=== PATIENT | female | born 1990 | race Caucasian/White ===

== ENCOUNTER 2016-10-22 13:06 | Emergency (ER) | payer OTHER ==
[2016-10-22] MEDS ORDERED: Ibuprofen TAB* 400 MG PO ONE (14:28)
[2016-10-22 15:22] LABS: Hematocrit 40 % (35-47); Mean Corpuscular HGB Conc 33 g/dl (31-36); Mean Corpuscular Hemoglobin 30 pg (27-31); Mean Corpuscular Volume 92 fL (80-97); Mean Platelet Volume 9 um3 (7.4-10.4); Red Blood Count 4.33 10^6/ul (4.0-5.4); Red Cell Distribution Width 13 % (10.5-15); White Blood Count 17.8 10^3/ul (3.5-10.8)
[2016-10-22 15:37] LABS: Mono Internal Control QC Line Present
--- NOTE | 2016-10-22 15:40 | ED ---
Influenza-Like Illness - HPI Summary HPI Summary: Patient presents with throat pain, chest congestion and runny nose for approximately two weeks. She has a history of tonsillar swelling whenever she gets sick, so she has been using her nails to "squeeze them, to get any fluid out". She feels like she has gotten fluid out, but now her lymph nodes are swelling and she feels like she has fluid in her ears. She denies measured fever , but she has "felt warm". She asks if we can take her tonsils out. She saw an ENT when she was younger. She denies hearing loss, BONILLA or chest congestion. - History of Current Complaint Chief Complaint: EDThroatPain Time Seen by Provider: 10/22/16 13:47 Hx Obtained From: Patient Onset/Duration: Gradual Onset Severity: Severe Associated Signs & Symptoms: Sore Throat, Nasal Congestion - Allergy/Home Medications Allergies/Adverse Reactions: Allergies Allergy/AdvReac Type Severity Reaction Status Date / Time No Known Allergies Allergy Verified 07/14/15 12:12 PMH/Surg Hx/FS Hx/Imm Hx Cardiovascular History: Denies: Hx Congestive Heart Failure Respiratory History: Reports: Hx Asthma - A CHILD Psychiatric History: Reports: Hx Eating Disorder, Hx Bipolar Disorder - Surgical History Surgery Procedure, Year, and Place: essure- tubal ligation procedure, hx of ruptured bladder, hx of pelvic fx Hx Anesthesia Reactions: No Infectious Disease History: No Infectious Disease History: Reports: Hx Clostridium Difficile - not active Denies: Hx Hepatitis, Hx Human Immunodeficiency Virus (HIV), Hx of Known/ Suspected MRSA, Hx Shingles, Hx Tuberculosis, History Other Infectious Disease, Traveled Outside the [place] in Last 30 Days - Family History Known Family History: Positive: Other - cancer Negative: Cardiac Disease, Hypertension, Diabetes - Social History Occupation: Employed Part-time Lives: With Family Alcohol Use: None Substance Use Type: Reports: None Smoking Status (MU): Never Smoked Tobacco Amount Used/How Often: quit 2011 Have You Smoked in the Last Year: No Review of Systems Negative: Fever, Chills Positive: Sore Throat, Ear Ache, Nasal Discharge Negative: Chest Pain Negative: Cough Negative: Vomiting, Diarrhea, Nausea Negative: Myalgia Negative: Bruising Negative: Headache All Other Systems Reviewed And Are Negative: Yes Physical Exam Triage Information Reviewed: Yes Vital Signs On Initial Exam: Initial Vitals Temp Pulse Resp BP Pulse Ox 98.4 F 73 18 112/72 98 10/22/16 13:08 10/22/16 13:08 10/22/16 13:08 10/22/16 13:08 10/22/16 13:08 Vital Signs Reviewed: Yes Appearance: Positive: Well-Appearing, Well-Nourished, Pain Distress Skin: Positive: Warm, Skin Color Reflects Adequate Perfusion, Dry, Soft Head/Face: Positive: Normal Head/Face Inspection Eyes: Positive: EOMI, CSAE, Conjunctiva Clear ENT: Positive: Hearing grossly normal, Nasal congestion, TMs normal - clear fluid note bilateral ear drums, Tonsillar exudate Dental: Negative: Percussion Tenderness @ Neck: Positive: Supple, No Lymphadenopathy, Tenderness @ - bilateral cervical chain Respiratory/Lung Sounds: Positive: Clear to Auscultation, Breath Sounds Present Cardiovascular: Positive: RRR Abdomen Description: Positive: Nontender, Soft Bowel Sounds: Positive: Present Musculoskeletal: Positive: Strength/ROM Intact. Negative: Edema Left, Edema Right Neurological: Positive: Sensory/Motor Intact, Alert, Oriented to Person Place, Time, NV Bundle Intact Distally, Normal Gait Psychiatric: Positive: Affect/Mood Appropriate AVPU Assessment: Alert Diagnostics - Vital Signs Vital Signs Temp Pulse Resp BP Pulse Ox 10/22/16 13:08 98.4 F 73 18 112/72 98 - Laboratory Lab Results: Lab Results 10/22/16 10/22/16 Range/Units 14:50 14:50 WBC 17.8 H (3.5-10.8) 10^3/ul RBC 4.33 (4.0-5.4) 10^6/ul Hgb 13.0 (12.0-16.0) g/dl Hct 40 (35-47) % MCV 92 (80-97) fL MCH 30 (27-31) pg MCHC 33 (31-36) g/dl RDW 13 (10.5-15) % Plt Count 230 (150-450) 10^3/ul MPV 9 (7.4-10.4) um3 Neut % (Auto) 87.0 H (38-83) % Lymph % (Auto) 7.3 L (25-47) % Menard % (Auto) 2.7 (1-9) % Eos % (Auto) 2.2 (0-6) % Baso % (Auto) 0.8 (0-2) % Absolute Neuts (auto) 15.5 H (1.5-7.7) 10^3/ul Absolute Lymphs (auto) 1.3 (1.0-4.8) 10^3/ul Absolute Monos (auto) 0.5 (0-0.8) 10^3/ul Absolute Eos (auto) 0.4 (0-0.6) 10^3/ul Absolute Basos (auto) 0.1 (0-0.2) 10^3/ul Absolute Nucleated RBC 0 10^3/ul Nucleated RBC % 0 Monoscreen Pending Group A Strep Rapid Negative (Negative) Result Diagrams: 10/22/16 14:50 Lab Statement: Any lab studies that have been ordered have been reviewed, and results considered in the medical decision making process. Flu Symptom Course/Dx - Diagnoses Differential Diagnosis/HQI/PQRI: Positive: Bronchitis, Influenza, Pneumonia, RSV , Upper Respiratory Infection Provider Diagnoses: Tonsillitis with exudate Discharge - Discharge Plan Condition: Stable Disposition: HOME Prescriptions: Amoxicillin CAP* 500 mg PO Q12H #19 cap Patient Education Materials: Tonsillitis (ED) Referrals: Bhavana Lu MD [Primary Care Provider] - Terry Gutierres MD [Medical Doctor] - Additional Instructions: Please take the antibiotic until it is completely gone. Use ibuprofen 600-800mg three times daily with meals for the next 3-5 days to decrease swelling and pain. Perform warm saltwater gargles several times daily. Call Dr. Gutierres's office for an appointment to discus your concerns regarding your tonsils. Return to the emergency department if your symptoms worsen.
[2016-10-22] MEDS ORDERED: Amoxicillin PO (*) 250 MG CAP PO ONE (15:46)
[2016-10-22 16:09] VITALS: BP 105/62
== END 2016-10-22 16:08 | disposition home or self-care (01) ==
LOC: ED 13:06
DX: J02.9 Acute pharyngitis, unspecified (principal); H92.09 Otalgia, unspecified ear; J03.90 Acute tonsillitis, unspecified
CPT/HCPCS: 36415; 85025; 86308; 87651; 99283; A9270-GY

== ENCOUNTER 2017-01-20 08:44 | Emergency (ER) | payer SELFPAY ==
[2017-01-20 09:35] VITALS: BP 101/60
[2017-01-20] MEDS ORDERED: Ibuprofen TAB* 600 MG PO ONE (09:49)
--- NOTE | 2017-01-20 10:16 | UC ---
Respiratory Complaint HPI - HPI Summary HPI Summary: 1) About 2 weeks ago started having productive cough with tight chest, painful breathing. Denies marked nasal congestion, ST, or sneezing. Sx improved for a couple days, now are worse again. Pt has asthma, ran out of inhaler and is using brother's. Does not have any more albuterol neb respules. 2) L hip pain for several weeks. Hx of hip fx, gets pain occasionally. No new injury, no change in pain, worse with standing, walking, and lifting leg. Has responded well to prednisone in the past. Missed last apt with PCP, has discussed skilled nursing NSAIDs before. - History of Current Complaint Chief Complaint: UCGeneralIllness Stated Complaint: CONGESTION HIP PAIN Time Seen by Provider: 01/20/17 10:02 Hx Obtained From: Patient Hx Last Menstrual Period: 01/08/17 ?: No Onset/Duration: Gradual Onset, Lasting Weeks Timing: Constant Severity Initially: Mild Severity Currently: Moderate Character: Cough: Productive Aggravating Factors: Deep Breaths, Recumbent Position Alleviating Factors: OTC Meds, Upright Position Associated Signs And Symptoms: Positive: Hemoptysis, URI. Negative: Fever, Chills, Calf Pain, Sinus Discomfort - Allergies/Home Medications Allergies/Adverse Reactions: Allergies Allergy/AdvReac Type Severity Reaction Status Date / Time No Known Allergies Allergy Verified 07/14/15 12:12 PMH/Surg Hx/FS Hx/Imm Hx Cardiovascular History Of: Denies: Congestive Heart Failure Respiratory History Of: Reports: Asthma Psychological History Of: Reports: Bipolar Disorder - Surgical History Surgical History: Yes Surgery Procedure, Year, and Place: essure- tubal ligation procedure, hx of ruptured bladder, hx of pelvic fx. BACK SURGERY - Family History Known Family History: Positive: Other - cancer Negative: Cardiac Disease, Hypertension, Diabetes - Social History Lives: With Family Alcohol Use: Occasionally Substance Use Type: None Smoking Status (MU): Never Smoked Tobacco Amount Used/How Often: quit 2010 Have You Smoked in the Last Year: No Household Exposure Type: Cigarettes - Immunization History Most Recent Influenza Vaccination: 2011 Most Recent Tetanus Shot: years ago Most Recent Pneumonia Vaccination: none Vaccination Up to Date: Yes Review of Systems Constitutional: Negative Skin: Negative Eyes: Negative ENT: Negative Respiratory: Shortness Of Breath, Cough Cardiovascular: Negative Gastrointestinal: Negative Genitourinary: Negative Motor: Negative Neurovascular: Negative Musculoskeletal: Other: - L hip pain Neurological: Negative Psychological: Negative All Other Systems Reviewed And Are Negative: Yes Physical Exam Triage Information Reviewed: Yes Appearance: Well-Appearing, No Pain Distress, Well-Nourished Vital Signs: Initial Vital Signs Temp 98.9 F 01/20/17 09:20 Pulse 52 01/20/17 09:20 Resp 16 01/20/17 09:20 BP 101/60 01/20/17 09:20 Pulse Ox 98 01/20/17 09:20 Vital Signs Reviewed: Yes Eye Exam: Normal Eyes: Positive: Conjunctiva Clear ENT Exam: Normal ENT: Positive: Normal ENT inspection, Hearing grossly normal, Pharynx normal, TMs normal. Negative: Nasal drainage, Tonsillar swelling, Tonsillar exudate Dental Exam: Normal Neck exam: Normal Neck: Positive: Supple, Nontender Respiratory: Positive: No respiratory distress, Wheezing, Expiration - prolonged expt phase Cardiovascular Exam: Normal Cardiovascular: Positive: RRR, No Murmur Musculoskeletal Exam: Normal Neurological Exam: Normal Neurological: Positive: Alert Psychological Exam: Normal Skin Exam: Normal UC Diagnostic Evaluation - Laboratory O2 Sat by Pulse Oximetry: 98 Respiratory Course/Dx - Differential Dx/Diagnosis Provider Diagnoses: asthma exacerbation. L hip pain Discharge - Discharge Plan Condition: Stable Disposition: HOME Prescriptions: Albuterol 2.5MG/3ML (0.083%)* [Ventolin 2.5 MG/3 ML NEB.PRISCILLA*] 2.5 mg INH Q6H PRN #20 neb.priscilla PRN Reason: wheeze Albuterol HFA INHALER* [Ventolin HFA Inhaler*] 1 - 2 puff INH Q4H PRN #1 mdi PRN Reason: wheeze, cough predniSONE TAB* [Deltasone TAB*] 10 mg PO DAILY #45 tab Patient Education Materials: Asthma (ED), Hip Pain (ED) Referrals: Bhavana Lu MD [Primary Care Provider] - 1 Week Additional Instructions: Call or return if you develop increasing fever, shortness of breath, chest pain , bloody sputum, or otherwise worsen. If you have not improved at all after several days, contact your primary care physician or return here.
== END 2017-01-20 10:20 | disposition home or self-care (01) ==
LOC: UCEAST 08:44
DX: J45.901 Unspecified asthma with (acute) exacerbation (principal); M25.552 Pain in left hip; F31.9 Bipolar disorder, unspecified
CPT/HCPCS: 99212; A9270-GY; G0463

== ENCOUNTER → 2017-02-20 12:49 | Emergency (ER) | payer MEDICAID ==
[2017-02-20 12:54] VITALS: BP 106/61
--- NOTE | 2017-02-20 14:06 | RAD ---
INDICATION: Right hand injury. TECHNIQUE: 4 views of the right hand were obtained. FINDINGS: The bones are in normal alignment. No fracture is seen. Joint spaces appear maintained. IMPRESSION: NO EVIDENCE FOR FRACTURE.
--- NOTE | 2017-03-05 11:12 | ED ---
Upper Extremity Pain - HPI Summary HPI Summary: Patient struck her hand against a metal door two days ago and has continued pain and decreased motion due to pain. She did not punch the door. She denies previous injury to this hand and does not have N/T. - History of Current Complaint Chief Complaint: EDExtremityUpper Stated Complaint: RT HAND PAIN Time Seen by Provider: 02/20/17 13:07 Hx Obtained From: Patient Hx Last Menstrual Period: 01/08/17 Mechanism Of Injury: Blunt Trauma Onset/Duration: Started Days Ago - 2, Traumatic, Still Present Timing: Constant Severity Initially: Moderate Severity Currently: Mild Pain Location: Hand Character: Sharp, Aching Aggravating Factor(s): Movement Alleviating Factor(s): Nothing Associated Signs & Symptoms: Positive: Negative Related History: Dominant Hand Right - Allergies/Home Medications Allergies/Adverse Reactions: Allergies Allergy/AdvReac Type Severity Reaction Status Date / Time No Known Allergies Allergy Verified 02/20/17 12:50 PMH/Surg Hx/FS Hx/Imm Hx Cardiovascular History: Denies: Hx Congestive Heart Failure Respiratory History: Reports: Hx Asthma Psychiatric History: Reports: Hx Eating Disorder, Hx Bipolar Disorder - Surgical History Surgery Procedure, Year, and Place: essure- tubal ligation procedure, hx of ruptured bladder, hx of pelvic fx. BACK SURGERY Hx Anesthesia Reactions: No Infectious Disease History: Yes Infectious Disease History: Reports: Hx Clostridium Difficile - not active Denies: Hx Hepatitis, Hx Human Immunodeficiency Virus (HIV), Hx of Known/ Suspected MRSA, Hx Shingles, Hx Tuberculosis, History Other Infectious Disease, Traveled Outside the [place] in Last 30 Days - Family History Known Family History: Positive: Other - cancer Negative: Cardiac Disease, Hypertension, Diabetes - Social History Occupation: Employed Part-time Lives: With Family Alcohol Use: Occasionally Substance Use Type: Reports: None Smoking Status (MU): Never Smoked Tobacco Amount Used/How Often: quit 2011 Have You Smoked in the Last Year: No Review of Systems Positive: Myalgia, Decreased ROM. Negative: Edema Negative: Bruising Negative: Paresthesia, Numbness All Other Systems Reviewed And Are Negative: Yes Physical Exam Triage Information Reviewed: Yes Vital Signs On Initial Exam: Initial Vitals Temp Pulse Resp BP Pulse Ox 98.9 F 63 18 106/61 100 02/20/17 12:52 02/20/17 12:52 02/20/17 12:52 02/20/17 12:52 02/20/17 12:52 Vital Signs Reviewed: Yes Appearance: Positive: Well-Appearing, Well-Nourished, Pain Distress Skin: Positive: Warm, Skin Color Reflects Adequate Perfusion, Dry, Soft Head/Face: Positive: Normal Head/Face Inspection Eyes: Positive: EOMI, CASE, Conjunctiva Clear ENT: Positive: Hearing grossly normal Respiratory/Lung Sounds: Positive: Breath Sounds Present Cardiovascular: Positive: RRR Musculoskeletal: Positive: Strength/ROM Intact - able to form a full fist despite pain, Pain @ - globally TTP. Negative: Edema Right Neurological: Positive: Sensory/Motor Intact, Alert, Oriented to Person Place, Time, NV Bundle Intact Distally Psychiatric: Positive: Affect/Mood Appropriate AVPU Assessment: Alert Diagnostics - Vital Signs Vital Signs Temp Pulse Resp BP Pulse Ox 02/20/17 12:52 98.9 F 63 18 106/61 100 - Laboratory Lab Statement: Any lab studies that have been ordered have been reviewed, and results considered in the medical decision making process. - Radiology No standard instances Xray Interpretation: No Acute Changes Radiology Interpretation Completed By: Radiologist Course/Dx - Diagnoses Differential Diagnosis/HQI/PQRI: Positive: Arthritis, Bursitis, Contusion, Fracture (Closed), Hematoma, Strain, Sprain Provider Diagnoses: Contusion of right hand Discharge - Discharge Plan Condition: Stable Disposition: HOME Patient Education Materials: Contusion in Adults (ED) Referrals: Bhavana Lu MD [Primary Care Provider] - Additional Instructions: Please follow-up with your primary care if symptoms to not begin to improve in the next 7-10 days.
== END | disposition home or self-care (01) ==
LOC: ED 12:49
DX: S60.221A Contusion of right hand, initial encounter (principal); W22.8XXA Striking against or struck by other objects, initial encounter; Y92.9 Unspecified place or not applicable; F31.9 Bipolar disorder, unspecified; Z87.891 Personal history of nicotine dependence
CPT/HCPCS: 99281

== ENCOUNTER 2017-03-07 16:51 | Emergency (ER) | payer MEDICAID, OTHER ==
[2017-03-07 17:05] VITALS: BP 107/71
--- NOTE | 2017-03-07 17:33 | RAD ---
INDICATION: Cough. Short of breath. COMPARISON: Chest x-ray January 03, 2013 TECHNIQUE: PA and lateral dual-energy views were obtained. FINDINGS: Bones/Soft Tissues: There are no acute bony findings. Cardiomediastinal: The cardiomediastinal silhouette is normal. Lungs: There are no infiltrates. Pleura: There are no pleural effusions. Other: None IMPRESSION: NORMAL CHEST.
[2017-03-07] MEDS ORDERED: Albuterol HFA INHALER* 8 gm MDI INH ONE (17:55)
[2017-03-07] MEDS ORDERED: guaiFENesin/CODIEN 100MG-10MG* 5 ML UDC PO ONE (17:58)
[2017-03-07] MEDS ORDERED: predniSONE TAB* 50 MG PO SCH (18:00)
[2017-03-07] MEDS ORDERED: predniSONE TAB* 10 MG ONE (18:08)
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
== END 2017-03-07 18:20 | disposition home or self-care (01) ==
LOC: ED 16:51
DX: J06.9 Acute upper respiratory infection, unspecified (principal); R06.02 Shortness of breath; J02.9 Acute pharyngitis, unspecified
CPT/HCPCS: 71020; 99282; A9270-GY; J7512

== ENCOUNTER 2017-04-21 16:20 | Emergency (ER) | payer OTHER ==
[2017-04-21 16:27] VITALS: BP 100/50
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
== END 2017-04-21 17:05 | disposition home or self-care (01) ==
LOC: UCEAST 16:20
DX: J06.9 Acute upper respiratory infection, unspecified (principal); J40 Bronchitis, not specified as acute or chronic; R07.89 Other chest pain
CPT/HCPCS: 99212; G0463

== ENCOUNTER → 2017-07-08 10:34 | Emergency (ER) | payer OTHER ==
[~2017-07-08 10:34] MED LIST: FLUoxetine CAP* 10 MG PO ONE
[2017-07-08 11:02] LABS: Hematocrit 38 % (35-47); Hemoglobin 12.7 g/dl (12.0-16.0); Mean Corpuscular HGB Conc 34 g/dl (31-36); Mean Corpuscular Hemoglobin 31 pg (27-31); Mean Corpuscular Volume 93 fL (80-97); Mean Platelet Volume 9 um3 (7.4-10.4); Red Blood Count 4.11 10^6/ul (4.0-5.4); Red Cell Distribution Width 14 % (10.5-15); White Blood Count 7.7 10^3/ul (3.5-10.8)
--- NOTE | 2017-07-08 11:17 | ED ---
Psychiatric Complaint - HPI Summary HPI Summary: Patient presents to the ED voluntarily for MHU. She denies SI currently, but endorses anhedonia and states she sometimes feels as though she does not wish to live anymore. Denies self harm today or recent, but has a history of cutting. 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 She left [facility] after 1 day for not being able to speak to her kids while a patient there. She notes to a long history of depression, which was recently improved after starting Prozac last month. Her last dose was 4 days ago and has felt increasingly worse since that time. Denies recent ETOH use, but 1 month ago was drinking heavily. She has not followed up with her therapist recently. She is tearful on exam and she would like to speak with someone. - History Of Current Complaint Chief Complaint: EDMentalHealth Time Seen by Provider: 07/08/17 10:38 Hx Obtained From: Patient Hx Last Menstrual Period: now ?: No Onset/Duration: Sudden Onset Timing: Constant Severity Initially: Moderate Severity Currently: Moderate Character: Depressed, Anxious Aggravating Factor(s): Recent Stress, Alcohol Use, Drug Use Alleviating Factor(s): Medication Associated Signs And Symptoms: Positive: Sleep Disturbance Related History: Positive For: Prior Psychiatric Issues Has Suicidal: Reports: Thoughts - with no plan or gesture - Risk Factor(s) Completed Suicide Risk Factors: Negative - Allergies/Home Medications Allergies/Adverse Reactions: Allergies Allergy/AdvReac Type Severity Reaction Status Date / Time No Known Allergies Allergy Verified 04/21/17 16:27 Home Medications: Home Medications FLUoxetine CAP* [PROzac CAP*] 10 mg PO DAILY 07/08/17 [History Confirmed ] PMH/Surg Hx/FS Hx/Imm Hx Previously Healthy: Yes Cardiovascular History: Denies: Hx Congestive Heart Failure Respiratory History: Reports: Hx Asthma Psychiatric History: Reports: Hx Eating Disorder, Hx Bipolar Disorder - Surgical History Surgery Procedure, Year, and Place: essure- tubal ligation procedure, hx of ruptured bladder, hx of pelvic fx. BACK SURGERY Hx Anesthesia Reactions: No - Immunization History Hx Pertussis Vaccination: No Immunizations Up to Date: Unable to Obtain/Confirm Infectious Disease History: No Infectious Disease History: Reports: Hx Clostridium Difficile - not active Denies: Hx Hepatitis, Hx Human Immunodeficiency Virus (HIV), Hx of Known/ Suspected MRSA, Hx Shingles, Hx Tuberculosis, History Other Infectious Disease, Traveled Outside the [place] in Last 30 Days - Family History Known Family History: Positive: Other - cancer Negative: Cardiac Disease, Hypertension, Diabetes - Social History Occupation: Employed Part-time Lives: With Family Alcohol Use: None Alcohol Amount: was daily, quit to take Prozac, has been sober since Hx Substance Use: No Substance Use Type: Reports: Other Substance Use Comment - Amount & Last Used: "anything to numb me" (oral substances) Hx Tobacco Use: No Smoking Status (MU): Never Smoked Tobacco Amount Used/How Often: quit 2010 Have You Smoked in the Last Year: No Review of Systems Constitutional: Negative Eyes: Negative Cardiovascular: Negative Respiratory: Negative Positive: no symptoms reported, see HPI Musculoskeletal: Negative Skin: Negative Neurological: Negative Positive: Anxious, Depressed All Other Systems Reviewed And Are Negative: Yes Physical Exam Triage Information Reviewed: Yes Vital Signs On Initial Exam: Initial Vitals Temp Pulse Resp BP Pulse Ox 98.2 F 70 18 120/74 98 07/08/17 10:35 07/08/17 10:35 07/08/17 10:35 07/08/17 10:35 07/08/17 10:35 Vital Signs Reviewed: Yes Appearance: Positive: Well-Appearing, Well-Nourished Skin: Positive: Warm, Skin Color Reflects Adequate Perfusion Head/Face: Positive: Normal Head/Face Inspection Eyes: Positive: EOMI, CASE, Conjunctiva Clear Neck: Positive: Supple, No Lymphadenopathy Respiratory/Lung Sounds: Positive: Clear to Auscultation, Breath Sounds Present Cardiovascular: Positive: Normal, RRR, Pulses are Symmetrical in both Upper and Lower Extremities Musculoskeletal: Positive: Normal, Strength/ROM Intact Neurological: Positive: Normal Gait, Speech Normal Psychiatric: Positive: Normal AVPU Assessment: Alert - Glenny Coma Scale Coma Scale Total: 15 Diagnostics - Vital Signs Vital Signs Temp Pulse Resp BP Pulse Ox 07/08/17 10:35 98.2 F 70 18 120/74 98 - Laboratory Lab Results: Lab Results 07/08/17 Range/Units 10:51 WBC 7.7 (3.5-10.8) 10^3/ul RBC 4.11 (4.0-5.4) 10^6/ul Hgb 12.7 (12.0-16.0) g/dl Hct 38 (35-47) % MCV 93 (80-97) fL MCH 31 (27-31) pg MCHC 34 (31-36) g/dl RDW 14 (10.5-15) % Plt Count 226 (150-450) 10^3/ul MPV 9 (7.4-10.4) um3 Neut % (Auto) 75.7 (38-83) % Lymph % (Auto) 15.9 L (25-47) % Bracken % (Auto) 4.5 (1-9) % Eos % (Auto) 2.9 (0-6) % Baso % (Auto) 1.0 (0-2) % Absolute Neuts (auto) 5.8 (1.5-7.7) 10^3/ul Absolute Lymphs (auto) 1.2 (1.0-4.8) 10^3/ul Absolute Monos (auto) 0.3 (0-0.8) 10^3/ul Absolute Eos (auto) 0.2 (0-0.6) 10^3/ul Absolute Basos (auto) 0.1 (0-0.2) 10^3/ul Absolute Nucleated RBC 0.01 10^3/ul Nucleated RBC % 0.1 Result Diagrams: 07/08/17 10:51 07/08/17 10:51 Lab Statement: Any lab studies that have been ordered have been reviewed, and results considered in the medical decision making process. Course/Dx - Course Course Of Treatment: Patient is evaluated for mental health with thoughts of suicide. She is here volutnarily and states she has no discofort, just feeling depressed. She is cleared for MHU. Prozac prescribed for 7 days. She will go back to [facility] next week for rehab. MHU clears for discharge. Provider approves discharge based on no acute symptoms of wanting to self harm and no SI. - Differential Dx/Clinical Impression Differential Diagnosis/HQI/PQRI: Positive: Suicide Attempt, Suicidal Ideation, Suicidal Gesture Provider Diagnosis: Anhedonia Discharge - Discharge Plan Condition: Stable Disposition: HOME Prescriptions: FLUoxetine CAP* [PROzac CAP*] 10 mg PO DAILY #7 cap Referrals: Bhavana Lu MD [Primary Care Provider] -
[2017-07-08 11:22] LABS: ALT 11 U/L (7-52); AST 14 U/L (13-39); Albumin 4.4 g/dL (3.2-5.2); Alkaline Phosphatase 39 U/L (34-104); Anion Gap 8 mmol/L (2-11); Blood Urea Nitrogen 12 mg/dL (6-24); CO2 Carbon Dioxide 21 mmol/L (22-32); Calcium 9.1 mg/dL (8.6-10.3); Chloride 110 mmol/L (101-111); EGFR African American 119.2 (>60); EGFR Non-African American 92.7 (>60); Globulin 2.3 g/dL (2-4); Glucose 89 mg/dL (70-100); Potassium 3.9 mmol/L (3.5-5.0); Sodium 139 mmol/L (133-145); Total Protein 6.7 g/dL (6.4-8.9)
[2017-07-08 11:38] LABS: Acetaminophen < 15 mcg/mL; Alcohol < 10 mg/dL (<10); Salicylate < 2.50 mg/dL (<30)
[2017-07-08 12:28] LABS: Urine Bilirubin Negative (Negative); Urine Glucose Negative (Negative); Urine Nitrite Negative (Negative)
[2017-07-08 13:13] LABS: Benzodiazepine Urine Screen None Detected (None Detect)
[2017-07-08 14:13] VITALS: BP 106/67
== END | disposition home or self-care (01) ==
LOC: ED 10:34
DX: Z87.891 Personal history of nicotine dependence (principal)
CPT/HCPCS: 36415; 80053; 80307; 80320; 80329; 81003; 84443; 85025; 99284; A9270-GY; G0480

== ENCOUNTER 2017-09-03 09:43 | Emergency (ER) | payer MEDICAID ==
[2017-09-03] MEDS ORDERED: NS 0.9% 1000 ML* 1,000 ML IV ONE (10:17)
[2017-09-03] MEDS ORDERED: Ketorolac INJ* 30 MG/ML 1 ML VIAL IV ONE (10:17)
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
[2017-09-03] MEDS ORDERED: Acetaminophen TAB* 325 MG PO ONE (10:40)
[2017-09-03] MEDS ORDERED: Al Hydrox/Mg Hydrox/Simet LIQ* 30 ML UDC PO ONE (10:43)
[2017-09-03] MEDS ORDERED: Lidocaine 2% VISCOUS* 15 ML UDC PO ONE (10:43)
[2017-09-03] MEDS ORDERED: Ondansetron TAB* 4 MG PO ONE (10:57)
[2017-09-03] MEDS ORDERED: Ondansetron INJ* 2 MG/ML VIAL ONE (10:58)
[2017-09-03 11:16] LABS: Hematocrit 37 % (35-47); Hemoglobin 12.5 g/dl (12.0-16.0); Mean Corpuscular HGB Conc 34 g/dl (31-36); Mean Corpuscular Hemoglobin 32 pg (27-31); Mean Corpuscular Volume 93 fL (80-97); Mean Platelet Volume 9 um3 (7.4-10.4); Red Blood Count 3.97 10^6/ul (4.0-5.4); Red Cell Distribution Width 14 % (10.5-15); White Blood Count 9.2 10^3/ul (3.5-10.8)
[2017-09-03 11:33] LABS: ALT 10 U/L (7-52); AST 14 U/L (13-39); Albumin 3.9 g/dL (3.2-5.2); Alkaline Phosphatase 33 U/L (34-104); Anion Gap 3 mmol/L (2-11); BUN/Creatinine Ratio 11.3 (8-20); Blood Urea Nitrogen 9 mg/dL (6-24); C Reactive Protein < 1.00 mg/L (< 5.00); CO2 Carbon Dioxide 26 mmol/L (22-32); Calcium 8.6 mg/dL (8.6-10.3); Chloride 110 mmol/L (101-111); EGFR African American 110.7 (>60); Globulin 1.9 g/dL (2-4); Glucose 92 mg/dL (70-100); Lipase 18 U/L (11.0-82.0); Potassium 4.1 mmol/L (3.5-5.0); Sodium 139 mmol/L (133-145); Total Protein 5.8 g/dL (6.4-8.9)
[2017-09-03] MEDS ORDERED: Iohexol 300* (CONTRAST) 10 ML SDV IV ONE (12:11)
--- NOTE | 2017-09-03 14:26 | RAD ---
INDICATION: Epigastric and midabdominal pain. COMPARISON: Comparison is made with a prior CT of the abdomen and pelvis from April 05, 2015. TECHNIQUE: A CT scan of the abdomen and pelvis was performed with intravenous and oral contrast following intravenous injection of 88 ml of Omnipaque 300 nonionic contrast. Contiguous axial sections were obtained from the lung bases through the symphysis pubis. Images were reconstructed in the coronal and sagittal planes. FINDINGS: The lung bases are clear. No pleural effusion is present. The liver and spleen are normal in size. There is a hypodense 2.0 cm lesion in the posterior segment of the right hepatic lobe with discontinuous nodular enhancement and complete fill in on the delayed images most consistent with a hemangioma. This has increased slightly in size from the prior exam and previously measured 1.5 cm in size. No other focal hepatic abnormalities are seen. No calcified gallstones are noted. The pancreas appears to be within normal limits. The kidneys and adrenal glands are normal in size. No hydronephrosis is seen. No significant focal renal abnormality is seen. The aorta is normal in caliber and demonstrates homogeneous contrast opacification. There is a filter in the infrarenal portion of the inferior vena cava. A couple of the struts appear to extend beyond the wall of the inferior vena cava which appear to have progressed slightly from the prior study. No significant enlarged retroperitoneal lymph nodes are seen. The stomach, small and large bowel appear nondistended. The appendix is within normal limits. There are a few scattered diverticuli in the sigmoid colon. There is no evidence for diverticulitis or colitis. The uterus is retroverted and normal in size. There is a small amount of free intraperitoneal fluid present in the posterior dependent portion of the pelvis. No free intraperitoneal air is seen. There are multiple old fractures of the left iliac bone, left acetabulum and left superior and inferior pubic rami. There are 2 surgical screws spanning the left sacroiliac joint. IMPRESSION: 1. SMALL AMOUNT OF FREE INTRAPERITONEAL FLUID IN THE PELVIS. 2. LESION IN THE POSTERIOR SEGMENT OF THE RIGHT HEPATIC LOBE MOST CONSISTENT WITH A HEMANGIOMA SLIGHTLY INCREASED IN SIZE. 3. MULTIPLE OLD PELVIC FRACTURES AND POSTSURGICAL CHANGES. 4. A COUPLE OF THE STRUTS FROM THE INFERIOR VENA CAVA FILTER MAY EXTEND BEYOND THE WALL OF THE INFERIOR VENA CAVA AND APPEARS TO HAVE PROGRESSED SLIGHTLY FROM THE PRIOR STUDY.
[2017-09-03 15:59] VITALS: BP 96/59
== END 2017-09-03 15:53 | disposition home or self-care (01) ==
LOC: ED 09:43
DX: R10.9 Unspecified abdominal pain (principal); K29.70 Gastritis, unspecified, without bleeding; J45.909 Unspecified asthma, uncomplicated
CPT/HCPCS: 36415; 74177; 80053; 83605; 83690; 84702; 85025; 86140; 96360; 96374; 96375; 99283; A9270-GY; J1885; J2405; Q9967

== ENCOUNTER 2017-09-08 17:41 | Emergency (ER) | payer MEDICAID ==
[2017-09-08 18:04] VITALS: BP 108/52
[2017-09-08] MEDS ORDERED: DOXYcycline CAP(*) 100 MG PO ONE (18:40)
--- NOTE | 2017-09-08 18:57 | UC ---
Skin Complaint HPI - HPI Summary HPI Summary: Tick bite Tuesday night while caring in wood- found Tick just below right groin Tuesday morning- - History of Current Complaint Chief Complaint: UCSkin Time Seen by Provider: 09/08/17 18:35 Stated Complaint: TICK BITE Hx Obtained From: Patient Hx Last Menstrual Period: 08/31/17 ?: No Onset/Duration: Sudden Onset, Lasting Days - 2 Timing: Constant Onset Severity: Mild Current Severity: Mild Location: Discrete - small pensil eraser size red area Aggravating Factor(s): Nothing Alleviating Factor(s): Nothing Associated Signs & Symptoms: Positive: Negative Related History: Possible Reaction to: Insect - Allergy/Home Medications Allergies/Adverse Reactions: Allergies Allergy/AdvReac Type Severity Reaction Status Date / Time No Known Allergies Allergy Verified 09/08/17 18:04 Home Medications: Home Medications Amoxicillin PO (*) [Amoxicillin 875 MG (*)] 1 tab PO Q12HR 09/08/17 [History Confirmed 09/08/17] FLUoxetine CAP* [PROzac CAP*] 20 mg PO DAILY 09/08/17 [History Confirmed ] Review of Systems Constitutional: Negative Skin: Rash - erythema asround site of tick bite just below right groin Eyes: Negative ENT: Negative Respiratory: Negative Cardiovascular: Negative Gastrointestinal: Negative Genitourinary: Negative Motor: Negative Neurovascular: Negative Musculoskeletal: Negative Neurological: Negative Psychological: Negative Is Patient Immunocompromised?: No All Other Systems Reviewed And Are Negative: Yes PMH/Surg Hx/FS Hx/Imm Hx Previously Healthy: Yes GI/ History: Gastroesophageal Reflux Psychological History: Depression - Surgical History Surgical History: Yes Surgery Procedure, Year, and Place: essure- tubal ligation procedure, hx of ruptured bladder, hx of pelvic fx. BACK SURGERY. 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, has been sober since Substance Use Type: None Substance Use Comment - Amount & Last Used: "anything to numb me" (oral substances) Smoking Status (MU): Heavy Every Day Tobacco Smoker Amount Used/How Often: quit 2010 Have You Smoked in the Last Year: No Household Exposure Type: Cigarettes - Immunization History Most Recent Influenza Vaccination: 2012 Most Recent Tetanus Shot: years ago Most Recent Pneumonia Vaccination: none Vaccination Up to Date: Yes Physical Exam Triage Information Reviewed: Yes Appearance: Well-Appearing, No Pain Distress, Well-Nourished Vital Signs: Initial Vital Signs Temp 98.1 F 09/08/17 18:00 Pulse 68 09/08/17 18:00 Resp 18 09/08/17 18:00 BP 108/52 09/08/17 18:00 Pulse Ox 99 09/08/17 18:00 Vital Signs Reviewed: Yes Eye Exam: Normal Eyes: Positive: Conjunctiva Clear ENT Exam: Normal ENT: Positive: Normal ENT inspection, Hearing grossly normal, Pharynx normal. Negative: Nasal congestion, Nasal drainage, Trismus, Muffled voice, Hoarse voice Dental Exam: Normal Neck exam: Normal Neck: Positive: Supple, Nontender Respiratory Exam: Normal Respiratory: Positive: Chest non-tender, No respiratory distress, No accessory muscle use Cardiovascular Exam: Normal Cardiovascular: Positive: RRR, Brisk Capillary Refill Musculoskeletal Exam: Normal Musculoskeletal: Positive: Strength Intact, ROM Intact, No Edema Neurological Exam: Normal Neurological: Positive: Alert, Muscle Tone Normal Psychological Exam: Normal Skin Exam: Normal Skin: Positive: Other - pensil size erythema around site of Tick Attachment Course/Dx - Course Course Of Treatment: Doxycycline times one dose now- observe for s/s of Lyme and follow kelsi should symptoms appear - Diagnoses Provider Diagnoses: Tick exposure with Lyme PEP Discharge - Discharge Plan Condition: Stable Disposition: HOME Patient Education Materials: Tick Bite (ED) Referrals: Bhavana Lu MD [Primary Care Provider] - If Needed
== END 2017-09-08 18:50 | disposition home or self-care (01) ==
LOC: UCEAST 17:41
DX: S30.861A Insect bite (nonvenomous) of abdominal wall, initial encounter (principal); W57.XXXA Bitten or stung by nonvenomous insect and other nonvenomous arthropods, initial encounter; Y93.89 Activity, other specified; Y92.007 Garden or yard of unspecified non-institutional (private) residence as the place of occurrence of the external cause; Y99.9 Unspecified external cause status; F32.9 Major depressive disorder, single episode, unspecified; Z87.891 Personal history of nicotine dependence; F10.21 Alcohol dependence, in remission
CPT/HCPCS: 99212; A9270-GY; G0463

== ENCOUNTER 2018-02-07 10:03 | Emergency (ER) | payer OTHER ==
[2018-02-07 10:11] VITALS: BP 100/62
--- NOTE | 2018-02-07 11:09 | UC ---
Dental HPI - HPI Summary HPI Summary: 1. INTERMITTENT RIGHT WRIST PAIN FOR ABOUT 3 WEEKS. 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 NO DISCRETE INJURY. REPORTS TINGLY SENSATIONS IN RIGHT FOREARM AND 3RD-5TH FINGERS. 2. ABOUT 1 MONTH OF LEFT EAR PAIN. PT THINKS IT MAY BE RADIATING FROM A BAD TOOTH. NO FEVER OR URI SX. - History of Current Complaint Chief Complaint: UCEar Stated Complaint: EAR PAIN, WRIST PAIN Time Seen by Provider: 02/07/18 10:37 Hx Obtained From: Patient Hx Last Menstrual Period: esure Onset/Duration: Gradual Onset, Lasting Weeks, Still Present Severity: Moderate Pain Intensity: 4 Pain Scale Used: 0-10 Numeric Aggravating Factor(s): Chewing Related History: Previous Dental Care on Same Tooth - Allergies/Home Medications Allergies/Adverse Reactions: Allergies Allergy/AdvReac Type Severity Reaction Status Date / Time No Known Allergies Allergy Verified 02/07/18 10:11 PMH/Surg Hx/FS Hx/Imm Hx Respiratory History: Asthma - Surgical History Surgical History: Yes Surgery Procedure, Year, and Place: essure- tubal ligation procedure, hx of ruptured bladder, hx of pelvic fx. BACK SURGERY. 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, has been sober since Substance Use Type: None Substance Use Comment - Amount & Last Used: "anything to numb me" (oral substances) Smoking Status (MU): Light Every Day Tobacco Smoker Type: Cigarettes Amount Used/How Often: 1/2 PPD Have You Smoked in the Last Year: No Household Exposure Type: Cigarettes - Immunization History Most Recent Influenza Vaccination: 2011 Most Recent Tetanus Shot: years ago Most Recent Pneumonia Vaccination: none Vaccination Up to Date: Yes Review of Systems Constitutional: Negative ENT: Dental Pain, Ear Ache Respiratory: Negative Cardiovascular: Negative Gastrointestinal: Negative Musculoskeletal: Arthralgia, Decreased ROM Neurological: Paresthesia All Other Systems Reviewed And Are Negative: Yes Physical Exam Triage Information Reviewed: Yes Appearance: Well-Appearing, No Pain Distress, Well-Nourished Vital Signs: Initial Vital Signs Temp 97.9 F 02/07/18 10:07 Pulse 64 02/07/18 10:07 Resp 18 02/07/18 10:07 BP 100/62 02/07/18 10:07 Pulse Ox 100 02/07/18 10:07 Vital Signs Reviewed: Yes Eyes: Positive: Conjunctiva Clear ENT: Positive: Hearing grossly normal, Pharynx normal, TMs normal Neck: Positive: Supple, Nontender, No Lymphadenopathy Respiratory Exam: Normal Cardiovascular Exam: Normal Abdomen Description: Positive: Soft Musculoskeletal: Positive: No Edema, ROM Limited @ - RIGHT WRIST, Other: - NEG TINELS, NEG PHALENS. TINGLING ELICITED BY TAPPING ON RIGHT ULNAR GROOVE. 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 TOOTHACHE LEFT LOWER 2ND MOLAR. 2. RIGHT ULNAR NERVE PALSY Discharge - Sign-Out/Discharge Documenting (check all that apply): Discharge/Admit/Transfer - Discharge Plan Condition: Stable Disposition: HOME Prescriptions: Amoxicillin/Clavulanate TAB* [Augmentin TAB 875*] 875 mg PO BID #20 tab Chlorhexidine MW 0.12% 473ML* [Peridex Mouth Wash 0.12%*] 15 ml SWISH SPIT BID # 1 bottle Patient Education Materials: Cubital Tunnel Syndrome (ED), Paresthesia (ED), Toothache (ED) Referrals: Lisbet Alonso MD [Medical Doctor] - 1 Week Wade Doty MD [Medical Doctor] - If Needed Bhavana Lu MD [Primary Care Provider] - If Needed Additional Instructions: NO EAR INFECTION ON EXAM TODAY. YOU MAY HAVE REFERRED PAIN FROM YOUR PROBABLE DENTAL INFECTION. WILL COVER WITH AUGMENTIN. TAKE TWICE DAILY FOR 10 DAYS WITH FOOD THIS MEDICATION CAN CAUSE SOME GI UPSET. FOLLOW-UP WITH A DENTIST ALEXA. THE TINGLING IN YOUR RIGHT HAND MAY BE DUE TO ULNAR NERVE PALSY. GIVEN THE DISTRIBUTION CARPAL TUNNEL IS LESS LIKELY BUT STILL MAY BE CONTRIBUTING. WEAR WRIST SPLINT AT NIGHT AND DURING THE DAY ABLE. FOLLOW-UP WITH ORTHOPEDICS AND/OR NEUROLOGY. - Billing Disposition and Condition Condition: STABLE Disposition: HOME
== END 2018-02-07 11:08 | disposition home or self-care (01) ==
LOC: UCEAST 10:03
DX: G56.21 Lesion of ulnar nerve, right upper limb (principal); K08.89 Other specified disorders of teeth and supporting structures; H92.02 Otalgia, left ear; J45.909 Unspecified asthma, uncomplicated; F17.210 Nicotine dependence, cigarettes, uncomplicated
CPT/HCPCS: 99213; G0463

== ENCOUNTER 2018-07-05 08:26 | Emergency (ER) | payer MEDICAID, OTHER ==
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
[2018-07-05 08:51] VITALS: BP 102/65
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
--- NOTE | 2018-07-05 09:37 | RAD ---
HISTORY: back pain COMPARISONS: None VIEWS: 5 , Frontal, lateral, coned-down lateral sacral, and bilateral oblique views of the lumbar spine. FINDINGS: ALIGNMENT: The alignment is normal. VERTEBRAL BODIES: The vertebral body heights are normal. The interpedicular distances are normal. JOINTS: There is mild facet hypertrophic change at L4-L5 and S1. INTERVERTEBRAL DISCS: The intervertebral disc heights are normal. SOFT TISSUE: Unremarkable. OTHER: The patient is status post fusion across the left SI joint. There is no hardware failure or osteolysis. An IVC filter is noted. IMPRESSION: 1. POSTSURGICAL CHANGE TO THE PELVIS. 2. MILD FACET OSTEOARTHRITIS ALONG THE LOWER LUMBAR SPINE.
== END 2018-07-05 09:49 | disposition home or self-care (01) ==
LOC: UCEAST 08:26
DX: M54.5 Low back pain (principal); S00.83XA Contusion of other part of head, initial encounter; W22.8XXA Striking against or struck by other objects, initial encounter; Y93.9 Activity, unspecified; Y92.9 Unspecified place or not applicable; F17.210 Nicotine dependence, cigarettes, uncomplicated
CPT/HCPCS: 70486; 72110; 81003; 84702; 99212; G0463

== ENCOUNTER 2018-08-21 09:09 | Emergency (ER) | payer MEDICAID, OTHER ==
[2018-08-21 09:30] VITALS: BP 85/47
[2018-08-21] MEDS ORDERED: predniSONE TAB* 20 MG PO ONE (10:01)
[2018-08-21] MEDS ORDERED: Albuterol 2.5 MG/3 ML NEB.SOL* (0.083%) INH ONE (10:01)
[2018-08-21] MEDS ORDERED: Ipratropium 0.5MG/2.5ML NEB* 0.5 MG/2.5 ML NEB.SOLN INH ONE (10:01)
--- NOTE | 2018-08-21 10:07 | UC ---
Respiratory Complaint HPI - HPI Summary HPI Summary: The patient is a 28-year-old female with a history of asthma that presents here with a 3 week history of progressively worsening cough and wheezing. She has also had a sore throat. He denies any fever or chills. She has been relying heavily on her rescue inhalers and they seemed to become less and less effective. He denies any fever or chills. She becomes dyspneic with minimal activity. She has not had any myalgias or arthralgias. - History of Current Complaint Chief Complaint: UCRespiratory Stated Complaint: URI Time Seen by Provider: 08/21/18 09:49 Hx Obtained From: Patient Hx Last Menstrual Period: esure Onset/Duration: Gradual Onset, Lasting Weeks Timing: Constant Pain Intensity: 8 - throat Pain Scale Used: 0-10 Numeric Character: Cough: Nonproductive Aggravating Factors: Exertion, Deep Breaths, Recumbent Position Alleviating Factors: Bronchodilator - now becoming ineffective Associated Signs And Symptoms: Positive: Wheezing - Allergies/Home Medications Allergies/Adverse Reactions: Allergies Allergy/AdvReac Type Severity Reaction Status Date / Time No Known Allergies Allergy Verified 08/21/18 09:30 Home Medications: Home Medications Escitalopram Oxalate [Lexapro 10 mg] 10 mg PO DAILY 08/21/18 [History Confirmed 08/21/18] hydrOXYzine HCL TAB* [Atarax 25 MG TAB*] 25 mg PO QID PRN 08/21/18 [History Confirmed 08/21/18] PMH/Surg Hx/FS Hx/Imm Hx Previously Healthy: Yes Respiratory History: Asthma, Bronchitis, Pneumonia - Surgical History Surgical History: Yes Surgery Procedure, Year, and Place: essure- tubal ligation procedure, hx of ruptured bladder, hx of pelvic fx. BACK SURGERY. 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, has been sober since Substance Use Type: None Substance Use Comment - Amount & Last Used: "anything to numb me" (oral substances) Smoking Status (MU): Light Every Day Tobacco Smoker Type: Cigarettes Amount Used/How Often: 1/2 PPD Have You Smoked in the Last Year: No Household Exposure Type: Cigarettes - Immunization History Most Recent Influenza Vaccination: 2011 Most Recent Tetanus Shot: years ago Most Recent Pneumonia Vaccination: none Vaccination Up to Date: Yes Review of Systems All Other Systems Reviewed And Are Negative: Yes Constitutional: Positive: Negative Skin: Positive: Negative Eyes: Positive: Negative ENT: Positive: Nasal Discharge, Sinus Congestion Respiratory: Positive: Shortness Of Breath, Cough Cardiovascular: Positive: Negative Gastrointestinal: Positive: Negative Genitourinary: Positive: Negative Motor: Positive: Negative Neurovascular: Positive: Negative Musculoskeletal: Positive: Negative Neurological: Positive: Negative Psychological: Positive: Negative Physical Exam Triage Information Reviewed: Yes Appearance: Well-Appearing, No Pain Distress, Well-Nourished Vital Signs: Initial Vital Signs Temp 98.7 F 08/21/18 09:27 Pulse 60 08/21/18 09:27 Resp 18 08/21/18 09:27 BP 85/47 08/21/18 09:27 Pulse Ox 98 08/21/18 09:27 Vital Signs Reviewed: Yes Eyes: Positive: Conjunctiva Clear ENT: Positive: Hearing grossly normal, Pharyngeal erythema, Nasal congestion, TMs normal, Uvula midline. Negative: Nasal drainage, Tonsillar swelling, Tonsillar exudate, Trismus, Muffled voice, Hoarse voice, Sinus tenderness Neck: Positive: Supple, Nontender, No Lymphadenopathy Respiratory: Positive: No accessory muscle use, Wheezing Cardiovascular: Positive: RRR. Negative: Tachycardia, Bradycardia Musculoskeletal: Positive: No Edema Neurological: Positive: Alert Psychological Exam: Normal Skin Exam: Normal UC Diagnostic Evaluation - Laboratory O2 Sat by Pulse Oximetry: 98 - normal/not hypoxic Re-Evaluation - Re-Evaluation First Eval Re-Evaluation Time: 10:51 Change: Improved Comment: marked subjective improve, on exam better air movement/decreased wheezes Respiratory Course/Dx - Differential Dx/Diagnosis Provider Diagnoses: acute bronchitis with bronchospasm Discharge - Sign-Out/Discharge Documenting (check all that apply): Patient Departure All imaging exams completed and their final reports reviewed: No Studies - Discharge Plan Condition: Stable Disposition: HOME Prescriptions: Albuterol 2.5MG/3ML (0.083%)* [Ventolin 2.5 MG/3 ML NEB.PRISCILLA*] 2.5 mg INH QID PRN #1 neb.priscilla PRN Reason: Wheezing Amoxicillin PO (*) [Amoxicillin 875 MG (*)] 875 mg PO BID #14 tab predniSONE [Deltasone 20 MG TAB] 40 mg PO DAILY #10 tab Patient Education Materials: Acute Bronchitis (ED) Referrals: Bhavana Lu MD [Primary Care Provider] - - Billing Disposition and Condition Condition: STABLE Disposition: Home
== END 2018-08-21 10:57 | disposition home or self-care (01) ==
LOC: UCEAST 09:09
DX: J20.9 Acute bronchitis, unspecified (principal); J45.909 Unspecified asthma, uncomplicated; F17.210 Nicotine dependence, cigarettes, uncomplicated
CPT/HCPCS: 99212; G0463; J7512

== ENCOUNTER → 2019-02-02 11:04 | Emergency (ER) | payer SELFPAY ==
[2019-02-02 12:53] VITALS: BP 97/75
--- NOTE | 2019-02-02 16:11 | ED ---
Throat Pain/Nasal Congestion - HPI Summary HPI Summary: Patient is a 20-year-old female who presents emergency department for sinus congestion, ear pain and cough 2 weeks. Past medical history of chronic ear infections as a child with tympanostomy tubes, asthma, smoking history. Patient denies fever, chills, abdominal pain, vomiting, diarrhea. Symptoms are mild in severity. Pt. has not tried taking any ropm-[id number] medications for symptoms. No current modifying factors. - History of Current Complaint Chief Complaint: EDEarPain Time Seen by Provider: 02/02/19 11:21 Hx Obtained From: Patient - Allergies/Home Medications Allergies/Adverse Reactions: Allergies Allergy/AdvReac Type Severity Reaction Status Date / Time No Known Allergies Allergy Verified 02/02/19 11:14 PMH/Surg Hx/FS Hx/Imm Hx Previously Healthy: Yes Endocrine/Hematology History: Denies: Hx Diabetes Cardiovascular History: Denies: Hx Congestive Heart Failure, Hx Hypertension Respiratory History: Reports: Hx Asthma History: Denies: Hx Renal Disease Musculoskeletal History: Reports: Hx Back Problems, Hx Orthopedic Injury - Back and Pelvic Fracture, Other Musculoskeletal History - Left Hip Pain Psychiatric History: Reports: Hx Anxiety, Hx Eating Disorder, Hx Depression, Hx Bipolar Disorder, Other Psychiatric Issues/Disorders - Drug and Alcohol Abuse Denies: Hx of Violent Episodes Against Others - Surgical History Surgery Procedure, Year, and Place: essure- tubal ligation procedure, hx of ruptured bladder, hx of pelvic fx. BACK SURGERY. IVC filter Hx Anesthesia Reactions: No Infectious Disease History: No Infectious Disease History: Reports: Hx Clostridium Difficile - not active Denies: Hx Hepatitis, Hx Human Immunodeficiency Virus (HIV), Hx of Known/ Suspected MRSA, Hx Shingles, Hx Tuberculosis, History Other Infectious Disease, Traveled Outside the [place] in Last 30 Days - Family History Known Family History: Positive: Other - cancer Negative: Cardiac Disease, Hypertension, Diabetes - Social History Occupation: Employed Full-time Lives: With Family Alcohol Use: None Alcohol Amount: was daily, quit to take Prozac, has been sober since Hx Substance Use: Yes Substance Use Type: Reports: None Substance Use Comment - Amount & Last Used: "anything to numb me" (oral substances) Hx Tobacco Use: Yes Smoking Status (MU): Heavy Every Day Tobacco Smoker Type: Cigarettes Amount Used/How Often: 1/2 PPD Have You Smoked in the Last Year: No Review of Systems Constitutional: Negative Negative: Fever, Chills - is Eyes: Negative Positive: Ear Ache, Nasal Discharge Cardiovascular: Negative Positive: Cough. Negative: Shortness Of Breath Gastrointestinal: Negative Negative: Abdominal Pain, Vomiting, Diarrhea Skin: Negative Negative: Rash Neurological: Negative All Other Systems Reviewed And Are Negative: Yes Physical Exam Triage Information Reviewed: Yes Vital Signs On Initial Exam: Initial Vitals Temp Pulse Resp BP Pulse Ox 98.3 F 84 16 118/72 99 02/02/19 11:10 02/02/19 11:10 02/02/19 11:10 02/02/19 11:10 02/02/19 11:10 Vital Signs Reviewed: Yes Appearance: Positive: Well-Appearing - Pt. sitting on bed in NAD. Skin: Positive: Warm, Dry Head/Face: Positive: Normal Head/Face Inspection Eyes: Positive: Normal, EOMI, CASE, Conjunctiva Clear ENT: Positive: Pharyngeal erythema, Other - Scarring to bilateral TMs with fluid level. No erythema. No drainage.. Negative: Tonsillar swelling, Tonsillar exudate Neck: Positive: Supple, Nontender, No Lymphadenopathy. Negative: Nuchal Rigidity Respiratory/Lung Sounds: Positive: Other - MIld expiratory wheeze throughout Cardiovascular: Positive: Normal, RRR Neurological: Positive: Normal, CN Intact II-III Psychiatric: Positive: Affect/Mood Appropriate Diagnostics - Vital Signs Vital Signs Temp Pulse Resp BP Pulse Ox 02/02/19 12:52 98.1 F 83 18 97/75 98 02/02/19 11:10 98.3 F 84 16 118/72 99 - Laboratory Lab Statement: Any lab studies that have been ordered have been reviewed, and results considered in the medical decision making process. EENT Course/Dx - Course Course Of Treatment: Patient afebrile appearing. We'll treat with Flonase. Patient states she has an albuterol inhaler at home and advised her to use 2 puffs every 4-6 hours. Advised patient to follow-up with the [facility]. To avoid smoking. We'll return to the ER if symptoms change or worsen. Can take ibuprofen for pain as directed. Patient understands and agrees with plan. - Differential Diagnoses Differential Diagnoses: Allergic Rhinitis, Otitis Externa, Otitis Media, Sinusitis - Diagnoses Provider Diagnoses: Respiratory infection, Serous otitis media Discharge - Sign-Out/Discharge Documenting (check all that apply): Patient Departure Patient Received Moderate/Deep Sedation with Procedure: No - Discharge Plan Condition: Good Disposition: HOME Prescriptions: Fluticasone NASAL SPRAY 50MCG* [Flonase NASAL SPRAY 50MCG*] 2 spray BOTH NARES DAILY #1 btl Patient Education Materials: Upper Respiratory Infection (ED), Serous Otitis Media (ED) Forms: *Work Release Referrals: Bhavana Lu MD [Primary Care Provider] - Additional Instructions: Follow up with your PCP Use flonase as directed Recommend over the counter decongestant such as sudafed Ibuprofen as directed Avoid smoking Use albuterol inhaler 2 puffs every 4-6 hours as needed for wheeze Return to ER if symptoms change or worsen - Billing Disposition and Condition Condition: GOOD Disposition: Home
== END | disposition home or self-care (01) ==
LOC: ED 11:04
DX: J98.8 Other specified respiratory disorders (principal); H65.93 Unspecified nonsuppurative otitis media, bilateral; J45.909 Unspecified asthma, uncomplicated; F32.9 Major depressive disorder, single episode, unspecified; F17.210 Nicotine dependence, cigarettes, uncomplicated
CPT/HCPCS: 99281

== ENCOUNTER 2019-09-30 08:11 | Emergency (ER) | payer SELFPAY ==
[2019-09-30 08:19] VITALS: BP 104/63
--- NOTE | 2019-09-30 08:29 | UC ---
Respiratory Complaint HPI - HPI Summary HPI Summary: 29 yo female presents with URI symptoms. She tells me that over the last 2 months she has had a dry cough. Over the last week her cough has gotten more consistent and she feels short of breath at times with chest tightness. She has a hx of asthma, but does not have an inhaler currently due to lack of insurance. She has a mild sore throat and sinus congestion. She is still smoking daily. Denies fever, rash, chest pain, abdominal pain, n/v. - History of Current Complaint Chief Complaint: UCRespiratory Stated Complaint: CHEST CONGESTION Time Seen by Provider: 09/30/19 08:29 Hx Obtained From: Patient Hx Last Menstrual Period: 09/27/19 Onset/Duration: Gradual Onset Severity Initially: Moderate Severity Currently: Moderate Pain Intensity: 5 Pain Scale Used: 0-10 Numeric - Allergies/Home Medications Allergies/Adverse Reactions: Allergies Allergy/AdvReac Type Severity Reaction Status Date / Time No Known Allergies Allergy Verified 09/30/19 08:20 PMH/Surg Hx/FS Hx/Imm Hx Respiratory History: Asthma - Surgical History Surgical History: Yes Surgery Procedure, Year, and Place: essure- tubal ligation procedure, hx of ruptured bladder, hx of pelvic fx. BACK SURGERY. IVC filter - Family History Known Family History: Positive: Other - cancer Negative: Cardiac Disease, Hypertension, Diabetes - Social History Lives: With Family Alcohol Use: None Alcohol Amount: was daily, quit to take Prozac, has been sober since Substance Use Type: None Substance Use Comment - Amount & Last Used: "anything to numb me" (oral substances) Smoking Status (MU): Heavy Every Day Tobacco Smoker Type: Cigarettes Amount Used/How Often: 1/2 PPD Have You Smoked in the Last Year: No Household Exposure Type: Cigarettes - Immunization History Most Recent Influenza Vaccination: 2011 Most Recent Tetanus Shot: years ago Most Recent Pneumonia Vaccination: none Vaccination Up to Date: Yes Review of Systems All Other Systems Reviewed And Are Negative: No Constitutional: Positive: Negative Skin: Positive: Negative Eyes: Positive: Negative ENT: Positive: Sore Throat, Nasal Discharge Respiratory: Positive: Cough Cardiovascular: Positive: Negative Gastrointestinal: Positive: Negative Neurological: Positive: Negative Psychological: Positive: Negative Physical Exam - Summary Physical Exam Summary: GENERAL: NAD. WDWN. No pain distress. SKIN: No rashes, sores, lesions, or open wounds. HEENT: Head: AT/NC Eyes: Conjunctiva clear without inflammation or discharge. Ears: Hearing grossly normal. TMs intact, no bulging, erythema, or edema. Nose: Nasal mucosa pink and moist. NTTP maxillary and frontal sinus. Throat: Posterior oropharynx without exudates, erythema, or tonsillar enlargement. Uvula midline. NECK: Supple. Nontender. No lymphadenopathy. CHEST: Moderate wheezing throughout. No r/r. No accessory muscle use. Breathing comfortably and in no distress. CV: RRR. Pulses intact. Cap refill <2seconds NEURO: Alert. PSYCH: Age appropriate behavior. Triage Information Reviewed: Yes Vital Signs: Initial Vital Signs Temp 97.7 F 09/30/19 08:14 Pulse 70 09/30/19 08:14 Resp 18 09/30/19 08:14 BP 104/63 09/30/19 08:14 Pulse Ox 99 09/30/19 08:14 Vital Signs Reviewed: Yes Diagnostics - Radiology CXR Radiology Interpretation Completed By: Radiologist Summary of Radiographic Findings: IMPRESSION: HYPERINFLATION WHICH CAN BE SEEN WITH COPD OR REACTIVE AIRWAY DISEASE. NO ACTIVE CARDIOPULMONARY DISEASE. Respiratory Course/Dx - Course Course Of Treatment: CXR as above. In the clinic she was given a duoneb treatment with great improvement of her wheezing and felt easier to take a deep breath. Suspect bronchitis/asthma exacerbation. She was dispensed an albuterol inhaler in the clinic to use q6h prn cough. Rx for tessalon, zpak, and prednisone. - Differential Dx/Diagnosis Provider Diagnosis: Bronchitis Discharge ED - Sign-Out/Discharge Documenting (check all that apply): Patient Departure All imaging exams completed and their final reports reviewed: Yes - Discharge Plan Condition: Stable Disposition: HOME Prescriptions: Azithromycin TAB* [Zithromax TAB (Z-MINNIE) 250 mg #6 tabs] 2 tab PO .TODAY, THEN 1 DAILY #1 minnie Benzonatate CAP* [Tessalon 100 MG CAP*] 100 mg PO TID PRN #21 cap PRN Reason: Cough predniSONE TAB* [Deltasone 20 MG TAB*] 40 mg PO DAILY #10 tab Patient Education Materials: Acute Bronchitis (ED) Referrals: Bhavana Lu MD [Primary Care Provider] - Additional Instructions: If you develop a fever, shortness of breath, chest pain, new or worsening symptoms - please call your PCP or go to the ED immediately. Use the albuterol inhaler 1-2puffs every 6 hours as needed for shortness of breath/wheezing - Billing Disposition and Condition Condition: STABLE Disposition: Home
[2019-09-30] MEDS ORDERED: Albuterol HFA INHALER* 8 gm MDI INH ONE (08:36)
[2019-09-30] MEDS ORDERED: Albuterol/Ipratropium NEB.SOL* Albuterol 2.5 MG/Ipratropium 0.5 MG 3 ML INH ONE (08:36)
== END 2019-09-30 09:07 | disposition home or self-care (01) ==
LOC: UCEAST 08:11
DX: J45.909 Unspecified asthma, uncomplicated (principal); F17.210 Nicotine dependence, cigarettes, uncomplicated
CPT/HCPCS: 71046; 99213; A9270-GY; G0463

== ENCOUNTER 2024-06-05 16:09 | Inpatient (IN) ==
[2024-06-05 17:36] LABS: Urine Appearance Clear; Urine Bilirubin Negative (Negative); Urine Blood Negative (Negative); Urine Color Yellow; Urine Glucose Negative (Negative); Urine Ketones Negative (Negative); Urine Nitrite Negative (Negative); Urine Protein Negative (Negative); Urine Specific Gravity 1.021 (1.002-1.030); Urine Urobilinogen 1+ (Negative)
[2024-06-05 17:55] LABS: Urine Benzodiazepine Screen None Detected (None Detect); Urine Cannabinoids Screen Presumptive Positive (None Detect); Urine Opiates Screen None Detected (None Detect)
[2024-06-05 20:37] VITALS: BP 111/72
[2024-06-05] MEDS ORDERED: Al Hydrox/Mg Hydrox/Simet LIQ 30 ML UDC PO PRN (20:43)
[2024-06-05] MEDS ORDERED: Nicotine GUM 2MG FRUIT FLAVOR PO PRN ×2 (21:00→23:00)
[2024-06-06 08:05] LABS: ABS Basophils 0.1 10^3/uL (0.0-0.1); ABS Eosinophils 0.6 10^3/uL (0.0-0.5); ABS Lymphocytes 1.4 10^3/uL (1.0-4.8); ABS Monocytes 0.3 10^3/uL (0.0-0.9); ABS Neutrophils 4.1 10^3/uL (1.5-7.6); Eosinophil % 8.7 %; Hematocrit 40.8 % (35-45); Hemoglobin 13.8 g/dL (11.5-14.3); Lymphocyte % 21.6 %; Mean Corpuscular Hemoglobin 32.3 pg (27-33); Mean Corpuscular Hgb Conc 33.8 g/dL (31-36); Mean Corpuscular Volume 95.5 fL (80-97); Mean Platelet Volume 8.7 fL (7.5-11.2); Nucleated Red Blood Cells % 0.1 %/100WBC (0.0-0.8); Platelet Count 253 10^3/uL (150-450); Red Blood Count 4.27 10^6/uL (3.63-4.92); Red Cell Distribution Width 13.6 % (12-17); White Blood Count 6.4 10^3/uL (3.8-11.8)
[2024-06-06 08:38] LABS: ALT 13 U/L (7-52); AST 13 U/L (13-39); Albumin 4.2 g/dL (3.2-5.2); Alkaline Phosphatase 33 U/L (35-149); Anion Gap 6 mmol/L (2-16); Blood Urea Nitrogen 8 mg/dL (6-24); CO2 Carbon Dioxide 26 mmol/L (22-32); Calcium 9.4 mg/dL (8.6-10.3); Chloride 108 mmol/L (101-111); Cholesterol 138 mg/dL; Creatinine, Serum 0.77 mg/dL (0.51-0.95); Globulin 2.1 g/dL (2-4); Glucose 97 mg/dL (70-100); HDL Cholesterol 48.6 mg/dL; LDL Cholesterol 73 mg/dL; Potassium 4.2 mmol/L (3.5-5.0); Sodium 140 mmol/L (135-145); Total Bilirubin 0.6 mg/dL (0.2-1.0); Total Protein 6.3 g/dL (6.4-8.9); Triglycerides 82 mg/dL; eGFR CKD-EPI 103.7 (>60)
[2024-06-06 08:45] LABS: HCG Pregnancy < 0.60 mIU/mL
[2024-06-06 08:53] LABS: TSH Ultra Thyroid Stim Horm 0.67 mcIU/mL (0.34-5.60)
[2024-06-06] MEDS: Vitamin THERAPEUTIC TAB PO SCH (10:02)
== END 2024-06-06 14:30 | disposition home or self-care (01) | DRG 881 ==
LOC: ED 16:09 → EDHOLD 19:20 → BSU 19:42
PROVIDERS: ADMIT Psychiatry & Neurology Psychiatry; ATTEND Psychiatry & Neurology Psychiatry